=== PATIENT | female | born 1995 | race Caucasian/White ===

== ENCOUNTER 2024-04-11 23:18 | Emergency (ER) | payer OTHER, MEDICAID, SELFPAY ==
[2024-04-12 00:45] VITALS: BP 132/60; PULSE 100; RESP 20; TEMP 37.1; O2SAT 100; BMI 29.2
[2024-04-12] MEDS: ONDANSETRON 4 MG/2 ML INJ IV (01:09)
[2024-04-12 01:12] LABS: Add Manual Diff / Slide Review NO; Basophils Absolute Auto 0 /uL (0-100); Basophils Percent Auto 0.2 % (0-2); Eosinophils Absolute Auto 0 /uL (0-450); Eosinophils Percent Auto 0.2 % (2-4); Hematocrit 41.5 % (36-46); Lymphocytes Absolute Auto 600 /uL (1100-4500); Mean Corpuscular HGB Conc 33.7 % (30-36); Mean Corpuscular Hemoglobin 30.7 PG (26-34); Mean Corpuscular Volume 91.2 fL (80-100); Monocytes Absolute Auto 700 /uL (0-900); Monocytes Percent Auto 4.3 % (3-14); Neutrophils Absolute Auto 14700 /uL (1500-7000); Neutrophils Percent Auto 91.3 % (50-75); Platelet Count 169 X10^3/uL (150-400); Red Blood Cell Count 4.55 X10^6/uL (4.0-5.2); Red Cell Distribution Width 12.1 % (11.6-14.8)
[2024-04-12 01:16] LABS: Alanine Aminotransferase 21 IU/L (<35); Albumin 4.3 g/dL (3.5-5.0); Albumin Globulin Ratio 1.3 (1.0-2.8); Alkaline Phosphatase 66 U/L (38-126); Aspartate Aminotransferase 25 IU/L (14-36); BUN Creatinine Ratio 21.1 (6-22); Bilirubin Total 0.9 mg/dL (0.2-1.3); Blood Urea Nitrogen 16 mg/dL (7-17); Calcium 8.6 mg/dL (8.4-10.2); Carbon Dioxide 25 mmol/L (22-32); Chloride 107 mmol/L (98-107); Estimated Glomerular Filt Rate > 60 mL/min (>60); Globulin 3.4 g/dL (1.7-4.1); Glucose 109 mg/dL (70-100); HEMOLYSIS < 15 (0-50); Lipase 39 U/L (23-300); Potassium 4.1 mmol/L (3.4-5.1); Sodium 137 mmol/L (137-145); Total Protein 7.7 g/dL (6.3-8.2)
[2024-04-12 03:22] VITALS: PULSE 90; O2SAT 99
[2024-04-12 03:30] VITALS: BP 110/56; PULSE 88; O2SAT 100
--- NOTE | 2024-04-12 04:01 | ED.ABDPAIN ---
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 No black or red emesis. No black or red stools. No recent exposure to antibiotics. No exposure to persons with similar symptoms and household for close contact. She has not tried any medications to see if the symptoms review better. She denies prior abdominopelvic surgeries. She just started her menstrual period which she feels to be on time, does not believe herself to be . She denies painful urination, flank pain, history of frequent urine infection. Related Data Previous Rx's Medication Instructions Recorded ondansetron 4 mg disintegrating 4 mg PO Q6H PRN nausea and 04/12/24 tablet vomiting #7 tabs Allergies Allergy/AdvReac Type Severity Reaction Status Date / Time Penicillins Allergy Verified 04/12/24 01:11 Review of Systems Review of Systems Narrative: per HPI Exam Narrative Exam Narrative: GENERAL: Well-developed patient, in mild distress. HEAD: Atraumatic. Normocephalic. EYES: Pupils equal round and reactive. Extraocular motions intact. No scleral icterus. No injection or drainage. ENT: Nose without bleeding, purulent drainage. Throat without erythema, tonsillar hypertrophy or exudate. Airway patent. NECK: Trachea midline. Non tender CARDIOVASCULAR: Regular rate and rhythm without murmurs, gallops, or rubs. RESPIRATORY: Clear to auscultation. Breath sounds equal bilaterally. No wheezes, rales, or rhonchi. GASTROINTESTINAL: Abdomen with diffuse tenderness, no guarding or rebound, nondistended, no obvious fluid wave, no particular region of maximal tenderness, unremarkable bowel tones without rushes or tinkles EXTREMITIES: No edema or joint tenderness. BACK: Nontender without deformity or crepitance. No flank tenderness. NEURO: AOx3. SKIN: No rash or erythema of visible areas Initial Vital Signs Initial Vital Signs: Vital Signs Temperature 98.8 F 04/12/24 00:45 Pulse Rate 100 H 04/12/24 00:45 Respiratory Rate 20 04/12/24 00:45 Blood Pressure 132/60 04/12/24 00:45 Pulse Oximetry 100 04/12/24 00:45 Oxygen Delivery Method Room Air 04/12/24 00:45 Course Orders Ordered: ED Orders 04/12/24 00:57 Complete Blood Count AUTO DIFF Stat Comprehensive Metabolic Panel Stat HCG Quantitative /Beta subunit Stat Lipase Stat 04/12/24 01:00 Ictotest Urine Stat 04/12/24 04:16 GI Panel (Film Array) Stat 04/12/24 04:59 CT abdomen pelvis w con Stat Discontinued Medications Dicyclomine HCl (Dicyclomine 10 Mg Capsule) 20 mg PO NOW ONE Stop: 04/12/24 06:18 Last Admin: 04/12/24 06:29 Dose: 20 mg Documented By: Metoclopramide HCl (Metoclopramide 10 Mg/2 Ml Inj) 10 mg IV NOW ONE Stop: 04/12/24 04:59 Last Admin: 04/12/24 05:08 Dose: 10 mg Documented By: Ondansetron HCl (Ondansetron 4 Mg/2 Ml Inj) 4 mg IV NOW PRN PRN Reason: Nausea And Vomiting Last Admin: 04/12/24 01:09 Dose: 4 mg Documented By: SHANNAN Ondansetron HCl (Ondansetron 4 Mg Odt) 4 mg PO NOW PRN PRN Reason: Nausea And Vomiting Last Admin: 04/12/24 04:03 Dose: 4 mg Documented By: AVERY Vital Signs Vital signs: Vital Signs - 8 hr 04/12/24 00:45 04/12/24 03:22 04/12/24 03:30 Temperature 98.8 F Pulse Rate 100 H 90 Respiratory Rate 20 Blood Pressure 132/60 110/56 L Pulse Oximetry 100 99 Oxygen Delivery Method Room Air 04/12/24 03:30 04/12/24 06:34 Temperature 98.4 F Pulse Rate 88 88 Respiratory Rate 18 Blood Pressure 126/69 Pulse Oximetry 100 99 Oxygen Delivery Method Room Air MDM - Abdominal Pain Lab Data 04/12/24 00:57 04/12/24 00:57 Labs: Lab Results 04/12/24 04/12/24 Range/Units 00:57 01:00 WBC 16.0 H (4.5-11.0) X10^3/uL RBC 4.55 (4.0-5.2) X10^6/uL Hgb 14.0 (12.0-16.0) g/dL Hct 41.5 (36-46) % MCV 91.2 (80-100) fL MCH 30.7 (26-34) PG MCHC 33.7 (30-36) % RDW 12.1 (11.6-14.8) % Plt Count 169 (150-400) X10^3/uL Neut % (Auto) 91.3 H (50-75) % Lymph % (Auto) 4.0 L (25-40) % [place] % (Auto) 4.3 (3-14) % Eos % (Auto) 0.2 L (2-4) % Baso % (Auto) 0.2 (0-2) % Neut # (Auto) 48892 H (0142-6538) /uL Lymph # (Auto) 600 L (2717-6953) /uL [place] # (Auto) 700 (0-900) /uL Eos # (Auto) 0 (0-450) /uL Baso # (Auto) 0 (0-100) /uL Sodium 137 (137-145) mmol/L Potassium 4.1 (3.4-5.1) mmol/L Chloride 107 (98-107) mmol/L Carbon Dioxide 25 (22-32) mmol/L BUN 16 (7-17) mg/dL Creatinine 0.76 (0.52-1.04) mg/dL Estimated GFR > 60 (>60) mL/min BUN/Creatinine Ratio 21.1 (6-22) Glucose 109 H (70-100) mg/dL Calcium 8.6 (8.4-10.2) mg/dL Total Bilirubin 0.9 (0.2-1.3) mg/dL AST 25 (14-36) IU/L ALT 21 (<35) IU/L Alkaline Phosphatase 66 (38-126) U/L Total Protein 7.7 (6.3-8.2) g/dL Albumin 4.3 (3.5-5.0) g/dL Globulin 3.4 (1.7-4.1) g/dL Albumin/Globulin Ratio 1.3 (1.0-2.8) Lipase 39 (23-300) U/L HCG, Quant < 2.39 mIU/mL Ur Bilirubin Confirm Negative (Negative) Point of care testing: Urine Dip Bedside Urine Glucose Negative Bedside Urine Bilirubin + 1 Bedside Urine Ketone +/- 5 Urine Specific [place] 1.015 Bedside Urine Occult Blood +/- Bedside Urine pH 6.0 Bedside Urine Protein +/- 15 Bedside Urine Urobilinogen +/- 1mg Bedside Urine Nitrite - Negative Bedside Urine Leukocytes +/- 15 Esterase MDM Narrative Medical decision making narrative: 29-year-old female with history of irritable bowel syndrome, now with nausea vomiting and diarrhea since yesterday, increased abdominal cramping, afebrile, sirs screen negative, no specific medication attempted to relieve her symptoms. Laboratory studies show white blood cell count [id number], LFTs and lipase unremarkable. Urinalysis pending. Stool studies requested if specimen received. IV fluid bolus. IV Zofran. HCG pending. HCG negative. CT abdomen and pelvis study ordered. CT abdomen and pelvis with IV contrast. Impressions: ?no evidence of colitis, diverticulitis, bowel obstruction, obstructive uropathy or acute appendicitis. ? tele radiology report Improved symptoms, home with family Critical Care Time Critical Care Time Total Critical Care Time: 31 Attestation: The high probability of a clinically significant, sudden or life threatening deterioration of the [abdominopelvic, genitourinary, gastrointestinal] system(s) required my full and direct attention, intervention and personal management. The aggregate critical care time was [31] minutes. This time is in addition to time spent performing reported procedures but includes the following: [x] Data Review and interpretation [x] Patient assessment and monitoring of vital signs [x] Documentation [x] Medication orders and management Discharge Plan Departure Patient Disposition: Home Clinical Impression: Abdominal pain, Nausea vomiting and diarrhea, History of irritable bowel syndrome Activity Restrictions/Additional Instructions: Nausea vomiting diarrhea, crampy abdominal discomfort. It is possible they might be having a viral gastroenteritis illness, elevated white blood cell count noted, CT scan abdomen and pelvis ordered, but no acute changes were noted by the radiology report. It is possible he might be having an noninfectious problem, such as exacerbation of irritable bowel syndrome. Symptoms improved with antinausea medication and pain medications. Take Tylenol as needed. Take anti nausea medications as needed. Recheck symptoms with your regular doctor in the next 12:48 p.m.. Drink plenty of fluids. Return to this/nearest emergency department for any change worsening symptoms or any concerns prior Prescriptions: New ondansetron 4 mg tablet,disintegrating 4 mg PO Q6H PRN (Reason: nausea and vomiting) Qty: 7 0RF Stand Alone Forms: Patient Portal/API
[2024-04-12] MEDS: ONDANSETRON 4 MG ODT PO (04:03)
[2024-04-12 04:33] LABS: HCG Quantitative /Beta subunit < 2.39 mIU/mL
--- NOTE | 2024-04-12 04:38 | PC.NURSE ---
Pt continues to feel nauseated and has burning pain to abdomen. Refused anything additional for pain/nausea.
[2024-04-12 04:39] LABS: Ictotest Urine Negative (Negative)
--- NOTE | 2024-04-12 04:59 | DI.CT.S_ITS ---
PROCEDURE: CT ABDOMEN PELVIS W CON INDICATIONS: Abdominal pain TECHNIQUE: After the administration of intravenous contrast, axial sections acquired from the lung bases to the pubic symphysis. Coronal and sagittal reformats were performed. For radiation dose reduction, the following was used: automated exposure control, adjustment of mA and/or kV according to patient size. COMPARISON: None. FINDINGS: Image quality: Diagnostic. Lower Chest: No significant findings. ABDOMEN: Liver: No solid mass. Gallbladder: No radiopaque gallstones or wall thickening. Biliary ducts: No biliary dilation. Pancreas: No ductal dilation. Spleen: Size is within normal limits. Adrenal Glands: No adrenal nodules. Kidneys and Ureters: No hydronephrosis. No solid mass. No complex renal cystic lesion which requires follow up. Stomach and Bowel: There is no bowel obstruction. No abnormal gastric or small bowel wall thickening. Appendix is not definitively identified. No secondary signs of acute appendicitis is seen in right lower quadrant abdomen. No abnormal colonic wall thickening. No abscess collection. Peritoneum: No abnormal intraperitoneal fluid. No free air. Ventral Wall: No significant ventral hernia. Abdominal Nodes: No retroperitoneal or mesenteric adenopathy by size criteria. Vessels: Aorta and inferior vena cava are normal in size. PELVIS: Pelvic Organs: Unremarkable. Bladder: No bladder wall thickening, accounting for underdistention. Pelvic Nodes: No enlarged lymph nodes. Miscellaneous: No inguinal hernias are seen. Bones: No aggressive osseous abnormality. IMPRESSION: 1. No acute inflammatory process is seen in abdomen or pelvis. No secondary CT signs of acute appendicitis. No bowel obstruction. No free fluid or free air. No significant discrepancies from preliminary reading. Dictated by: Nathan Perkins M.D. on 04/12/2024 at 8:16 Approved by: Nathan Perkins M.D. on 04/12/2024 at 8:19
[2024-04-12] MEDS: METOCLOPRAMIDE 10 MG/2 ML INJ IV (05:08)
[2024-04-12] MEDS: DICYCLOMINE 10 MG CAPSULE 20 MG PO (06:29)
[2024-04-12 06:34] VITALS: BP 126/69; PULSE 88; RESP 18; TEMP 36.9; O2SAT 99
== END 2024-04-12 06:35 | disposition home or self-care (01) ==
PROVIDERS: Emergency Provider Emergency Medicine
DX: R10.9 Unspecified abdominal pain (principal); R11.2 Nausea with vomiting, unspecified; R19.7 Diarrhea, unspecified; Z87.19 Personal history of other diseases of the digestive system
CPT/HCPCS: 36415; 74177; 80053; 81003; 83690; 84702; 85025; 96374; 96375; 99284; J2405; J2765; Q9967